=== PATIENT | female | born 1960 | race Caucasian/White ===

== ENCOUNTER 2022-09-17 08:35 | Outpatient (CLI) | payer BC, SELFPAY | END 2022-09-17 08:36 | disposition home or self-care (01) | LOC: NFLDREF 12:08 | PROVIDERS: PCP Internal Medicine; Visit Provider Internal Medicine | DX: Z00.00 Encounter for general adult medical examination without abnormal findings (principal); E66.9 Obesity, unspecified; E03.8 Other specified hypothyroidism; R73.03 Prediabetes; E78.5 Hyperlipidemia, unspecified | CPT/HCPCS: 82947; 84443 ==

== ENCOUNTER 2024-10-05 14:05 | Outpatient (CLI) | payer BC, SELFPAY | END 2024-10-05 14:06 | disposition home or self-care (01) | PROVIDERS: PCP Internal Medicine; Visit Provider Internal Medicine | DX: E78.5 Hyperlipidemia, unspecified (principal); E03.8 Other specified hypothyroidism | CPT/HCPCS: 80061; 84443 ==